=== PATIENT | male | born 1975 | race African-American/Black ===

== ENCOUNTER 2017-03-14 00:45 | Emergency (ER) | payer MEDICAID ==
[~2017-03-14] VITALS: Ht 185.4 cm; Wt 82.0 kg
[2017-03-14] MEDS ORDERED: [UNRECOGNIZED DRUG - OTHER] PO (00:52)
[2017-03-14] MEDS ORDERED: AMLO-512 PO ×2 (00:52→04:26)
[2017-03-14] MEDS ORDERED: [UNRECOGNIZED DRUG - OTHER] PO (00:52)
[2017-03-14 02:13] LABS: BASOPHILS % (AUTO) 0.7 % (0.0-2.0); EOSINOPHILS % (AUTO) 1.7 % (1.0-6.0); HEMATOCRIT 41.8 % (41-53); HEMOGLOBIN 14.2 g/dL (13.5-17.5); LYMPHOCYTES # (AUTO) 1.7 K/uL (1.0-4.8); LYMPHOCYTES % (AUTO) 34.6 % (22.0-44.0); MEAN CORPUSCULAR HEMOGLOBIN 24.6 pg (26.0-34.0); MEAN CORPUSCULAR HGB CONC 33.9 G/dL (31.0-37.0); MEAN CORPUSCULAR VOLUME 72 fL (80-100); MONOCYTES # (AUTO) 0.3 K/uL (0.1-1.0); NEUTROPHILS # (AUTO) 2.7 K/uL (1.8-7.7); PLATELET COUNT (AUTO) 264 K/uL (150-450); RED BLOOD CELL COUNT(AUTO) 5.77 MIL/uL (4.50-5.90); RED CELL DISTRIBUTION WIDTH 14.8 % (11.5-14.5); WHITE BLOOD COUNT (AUTO) 4.8 K/uL (4.5-11.0)
[2017-03-14 02:36] LABS: ANION GAP 9 mmol/L (8-16); CALCIUM, TOTAL 8.9 mg/dL (8.8-10.5); CARBON DIOXIDE 32 mmol/L (22-29); CHLORIDE 104 mmol/L (98-107); CREATININE 0.82 mg/dL (0.60-1.30); GLOMERULAR FILTR. RATE CALC > 60 mL/min (>60); SODIUM SERUM 145 mmol/L (136-145); UREA NITROGEN, BLOOD 7 mg/dL (7-18)
[2017-03-14 02:39] LABS: RBC MORPHOLOGY COMMENT ABNORMAL RBC MORPH
[2017-03-14 02:42] LABS: ALANINE AMINOTRANSFERASE 32 U/L (12-78); ASPARTATE AMINOTRANSFERASE 17 U/L (15-37); BILIRUBIN,TOTAL 0.8 mg/dL (0.1-1.0); TOTAL PROTEIN, SERUM 7.5 g/dL (6.4-8.2)
[2017-03-14] MEDS ORDERED: POTASSIUM CHLORIDE 10% 40 MEQ/30 ML LIQUID UDCUP PO ONE (03:00)
[2017-03-14 03:15] VITALS: BP 118/79
[2017-03-14] MEDS ORDERED: HYDR25TA PO (04:26)
[2017-03-14] MEDS ORDERED: ASPI81 PO (04:26)
== END 2017-03-14 03:36 | disposition home or self-care (01) ==
LOC: EMS 00:47
DX: S80.01XA Contusion of right knee, initial encounter (principal); E87.6 Hypokalemia; R55 Syncope and collapse; I10 Essential (primary) hypertension; W19.XXXA Unspecified fall, initial encounter; Y93.84 Activity, sleeping; Y92.810 Car as the place of occurrence of the external cause; Y99.8 Other external cause status
CPT/HCPCS: 93005; 99285